=== PATIENT | female | born 1945 | race Two or more races ===

== ENCOUNTER 2017-10-11 13:15 | Emergency (ER) | payer SELFPAY, MEDICAID, MEDICARE | END 2017-10-11 19:48 | disposition left against medical advice (07) | LOC: E/R 13:15 | DX: Z53.21 Procedure and treatment not carried out due to patient leaving prior to being seen by health care provider (principal) ==

== ENCOUNTER → 2017-10-14 | Outpatient (CLI) | payer MEDICARE, MEDICAID | END | disposition home or self-care (01) | LOC: RAD 09:05 | DX: Z01.818 Encounter for other preprocedural examination (principal) ==

== ENCOUNTER 2017-10-28 06:57 | Day surgery (SDC) | payer MEDICARE, OTHER, MEDICAID ==
[2017-10-28] MEDS: BUPIVACAINE 0.25% (MPF) 30 ML INJ INJ
[~2017-10-28 06:57] MED LIST: CEFAZOLIN 2 GM/50 ML (PMX) 50 ML IVPB; SOD CHLORIDE 0.9% 1,000 ML IV
[2017-10-28] MEDS ORDERED: EPHEDrine SULFATE 50 MG/5 ML SYG (07:00)
[2017-10-28] MEDS ORDERED: BUPIVACAINE 0.25% (MPF) 30 ML INJ (08:12)
[2017-10-28] MEDS ORDERED: PROPOFOL 20 ML (09:01)
[2017-10-28] MEDS ORDERED: LIDOCAINE 2% (SDV) 5 ML INJ (09:01)
[2017-10-28] MEDS ORDERED: FENTAnyl 50 MCG/ML VIAL (09:01)
[2017-10-28] MEDS ORDERED: SUCCINYLCHOLINE CHLORIDE 100 MG/5 ML SYG IV (09:01)
[2017-10-28] MEDS ORDERED: ROPIVACAINE 0.5 % 30 ML VIAL (09:01)
[2017-10-28] MEDS ORDERED: MIDAZOLAM 1 MG/ML 2 ML INJ (09:01)
[2017-10-28] MEDS ORDERED: ROCURONIUM 50 MG INJ (09:01)
[2017-10-28] MEDS ORDERED: CEFAZOLIN 1 GM INJ (09:15)
[2017-10-28] MEDS ORDERED: ONDANSETRON 4 MG INJ (09:24)
[2017-10-28] MEDS ORDERED: FAMOTIDINE 20 MG INJ (09:24)
[2017-10-28] MEDS ORDERED: DEXAMETHASONE 4 MG/ML 1 ML INJ (09:24)
[2017-10-28] MEDS ORDERED: SUGAMMADEX SODIUM 200 MG/2 ML VIAL IV (09:35)
[2017-10-28] MEDS ORDERED: KETOROLAC 30 MG INJ (09:36)
[2017-10-28] MEDS ORDERED: ACETAMINOPHEN 1000MG/100ML IV 100 ML (09:36)
[2017-10-28] MEDS ORDERED: hydrALAzine 20 MG INJ (09:56)
[2017-10-28] MEDS ORDERED: HYDROmorphONE 1 MG/5 ML IV SYRINGE IV (10:03)
[2017-10-28] MEDS: HYDROmorphONE 1 MG/5 ML IV SYRINGE IV (10:05)
[2017-10-28] MEDS ORDERED: FENTAnyl 50 MCG/ML VIAL IV (10:30)
[2017-10-28] MEDS ORDERED: MEPERIDINE 25 MG INJ IV (10:30)
[2017-10-28] MEDS ORDERED: ONDANSETRON 4 MG INJ IV (10:30)
[2017-10-28] MEDS ORDERED: DIPHENHYDRAMINE 50 MG INJ IV (10:30)
[2017-10-28] MEDS ORDERED: PROCHLORPERAZINE 10 MG INJ IV (10:30)
[2017-10-28] MEDS ORDERED: ALBUTEROL 0.083% (NEB) 2.5 MG/3 ML AMP (10:35)
[2017-10-28] MEDS: ALBUTEROL 0.083% (NEB) 2.5 MG/3 ML AMP HHN (10:40)
[2017-10-28] MEDS: HYDROCODONE/APAP (5/325) TAB PO (11:03)
== END 2017-10-28 12:45 | disposition home or self-care (01) ==
LOC: SDS 06:57
DX: K80.20 Calculus of gallbladder without cholecystitis without obstruction (principal); I25.10 Atherosclerotic heart disease of native coronary artery without angina pectoris; I10 Essential (primary) hypertension; I25.2 Old myocardial infarction
CPT/HCPCS: 47562; 71045; 88304; 94664

== ENCOUNTER 2018-05-26 06:10 | Day surgery (SDC) | payer MEDICARE, OTHER ==
[2018-05-26] MEDS ORDERED: LIDOCAINE 2% (SDV) 5 ML INJ (07:54)
[2018-05-26] MEDS ORDERED: PROPOFOL 60 ML (07:54)
[2018-05-26] MEDS ORDERED: EPHEDrine SULFATE 50 MG/5 ML SYG IV (08:00)
[2018-05-26] MEDS ORDERED: LABETALOL HCL 20MG INJ IV (08:00)
[2018-05-26] MEDS ORDERED: FENTAnyl 50 MCG/ML VIAL IV (08:00)
[2018-05-26] MEDS ORDERED: morphine (1 MG/ML) 10ML SYRINGE IV (08:00)
[2018-05-26] MEDS ORDERED: ONDANSETRON 4 MG INJ IV (08:00)
[2018-05-26] MEDS ORDERED: hydrALAzine 20 MG INJ IV (08:00)
== END 2018-05-26 12:18 | disposition home or self-care (01) ==
LOC: GIL 06:10
DX: R19.4 Change in bowel habit (principal); D12.5 Benign neoplasm of sigmoid colon; K64.8 Other hemorrhoids; K44.9 Diaphragmatic hernia without obstruction or gangrene; K21.9 Gastro-esophageal reflux disease without esophagitis; I25.10 Atherosclerotic heart disease of native coronary artery without angina pectoris; I10 Essential (primary) hypertension; E78.5 Hyperlipidemia, unspecified; Z79.82 Long term (current) use of aspirin
CPT/HCPCS: 43239; 88305; 88312